=== PATIENT | female | born 1995 | race Two or more races ===

== ENCOUNTER 2024-06-05 08:58 | Outpatient (CLI) | payer OTHER | END 2024-06-05 08:59 | disposition home or self-care (01) | LOC: PRENATAL 08:58 | PROVIDERS: ATTEND Obstetrics & Gynecology Maternal & Fetal Medicine | DX: O26.849 Uterine size-date discrepancy, unspecified trimester (principal); O36.8199 Decreased fetal movements, unspecified trimester, other fetus; O99.019 Anemia complicating pregnancy, unspecified trimester; Z3A.34 34 weeks gestation of pregnancy ==